=== PATIENT | male | born 1950 | race Caucasian/White ===

== ENCOUNTER 2022-09-30 10:23 | Outpatient (CLI) | payer OTHER | END 2022-09-30 10:35 | disposition home or self-care (01) | LOC: LAB 10:23 | DX: D68.8 Other specified coagulation defects (principal); H25.013 Cortical age-related cataract, bilateral; I10 Essential (primary) hypertension; I11.9 Hypertensive heart disease without heart failure; Z98.41 Cataract extraction status, right eye; H25.011 Cortical age-related cataract, right eye ==